=== PATIENT | female | born 1995 | race Caucasian/White ===

== ENCOUNTER 2017-06-07 03:45 | Emergency (ER) | payer SELFPAY ==
[~2017-06-07] VITALS: Ht 170.2 cm; Wt 90.0 kg
[2017-06-07 03:53] VITALS: BP 116/78
== END 2017-06-07 06:44 | disposition home or self-care (01) ==
LOC: ER 03:45
DX: R06.02 Shortness of breath (principal); F41.9 Anxiety disorder, unspecified
CPT/HCPCS: 71045; 93005; 99284

== ENCOUNTER 2019-07-17 18:47 | Emergency (ER) | payer MEDICAID ==
[~2019-07-17] VITALS: Ht 165.1 cm; Wt 65.0 kg
[2019-07-17] MEDS ORDERED: IBUPROFEN 600MG TABLET PO STA (20:07)
[2019-07-17 21:31] VITALS: BP 134/80
== END 2019-07-17 21:32 | disposition home or self-care (01) ==
LOC: ER 18:47
DX: S16.1XXA Strain of muscle, fascia and tendon at neck level, initial encounter (principal); S20.219A Contusion of unspecified front wall of thorax, initial encounter; V49.88XA Car occupant (driver) (passenger) injured in other specified transport accidents, initial encounter; Y93.89 Activity, other specified; Y92.89 Other specified places as the place of occurrence of the external cause; Y99.8 Other external cause status
CPT/HCPCS: 71045; 81025; 93005; 99283

== ENCOUNTER 2019-08-15 00:55 | Emergency (ER) | payer MEDICAID ==
[~2019-08-15] VITALS: Ht 170.2 cm; Wt 81.6 kg
[2019-08-15 01:43] VITALS: BP 128/74
== END 2019-08-15 01:44 | disposition home or self-care (01) ==
LOC: ER 00:55
DX: F41.9 Anxiety disorder, unspecified (principal); R05 Cough; R06.02 Shortness of breath; Z03.818 Encounter for observation for suspected exposure to other biological agents ruled out
CPT/HCPCS: 99283; C9803; U0003

== ENCOUNTER 2022-07-27 11:01 | Emergency (ER) | payer MEDICAID ==
[~2022-07-27] VITALS: Ht 170.2 cm; Wt 100.0 kg
[2022-07-27 11:05] VITALS: BP 119/78; PULSE 105; RESP 18; TEMP 98.8; O2SAT 98
[2022-07-27 11:42] LABS: BASOPHILS % 0.2 % (0.0-2.0); EOSINOPHILS % 0.7 % (0.0-5.0); HEMATOCRIT. 37.4 % (36.0-48.0); HEMOGLOBIN. 12.8 g/dL (12.0-16.0); LYMPHOCYTES % 20.7 % (20.0-50.0); MEAN CORPUSCULAR HEMOGLOBIN 31.1 pg (28.0-32.0); MEAN CORPUSCULAR VOLUME 90.5 fL (81.0-99.0); MONOCYTES % 6.7 % (2.0-8.0); NEUTROPHILS % 71.7 % (40.0-76.0); PLATELET 311 x1000/uL (130-400); RED BLOOD CELL COUNT 4.13 mill/uL (4.2-5.4)
[2022-07-27 11:52] LABS: CHLORIDE 104 mEq/L (98-107)
[2022-07-27 11:57] LABS: HCG SCREEN POSITIVE
== END 2022-07-27 17:00 | disposition left against medical advice (07) ==
LOC: ER 11:42
DX: Z53.21 Procedure and treatment not carried out due to patient leaving prior to being seen by health care provider (principal); I49.9 Cardiac arrhythmia, unspecified
CPT/HCPCS: 36415; 80053; 84484; 84703; 85025; 93005; 99281